=== PATIENT | male | born 1980 | race Caucasian/White ===

== ENCOUNTER 2018-01-12 09:42 | Emergency (ER) | payer MEDICARE, MEDICAID ==
[2018-01-12 11:34] VITALS: BP 142/95
--- NOTE | 2018-01-12 12:24 | UC ---
Throat Pain/Nasal Sergio HPI - HPI Summary HPI Summary: pt is c/o pain to his L ear for past 3 days. notes that just got a mild sore throat as well. has a hx of reoccuring swimmers ear. has old ear drops but didn' t use them bcause wanted to ensure txing the right thing. no fever, STOLL or drainage. - History of Current Complaint Chief Complaint: UCEar Stated Complaint: EAR COMPLAINT, ST Time Seen by Provider: 01/12/18 12:12 Hx Obtained From: Patient Onset/Duration: Gradual Onset Pain Intensity: 8 Associated Signs & Symptoms: Positive: Negative - Epiglottits Risk Factors Epiglottis Risk Factors: Negative - Allergies/Home Medications Allergies/Adverse Reactions: Allergies Allergy/AdvReac Type Severity Reaction Status Date / Time SEASONAL Allergy Congestion Uncoded 01/12/18 11:24 PMH/Surg Hx/FS Hx/Imm Hx Previously Healthy: No - cerebral palsy, lazy eye OS - Surgical History Surgical History: Yes Surgery Procedure, Year, and Place: R foot surgery R/T CPalsy; spinal Fusion - Family History Known Family History: Positive: Cardiac Disease - parents, mother with CAD, father with pacemaker, Hypertension - parents, Diabetes - mother, brother - Social History Occupation: Disabled Lives: With Family Alcohol Use: None Substance Use Type: None Smoking Status (MU): Never Smoked Tobacco - Immunization History Most Recent Influenza Vaccination: LAST WEEK Review of Systems Constitutional: Negative Skin: Negative Eyes: Negative ENT: Sore Throat, Ear Ache Respiratory: Negative Cardiovascular: Negative Gastrointestinal: Negative Genitourinary: Negative Neurological: Other - no acute changes from his cerebral palsy Psychological: Negative Is Patient Immunocompromised?: No All Other Systems Reviewed And Are Negative: Yes Physical Exam Triage Information Reviewed: Yes Appearance: Well-Appearing Vital Signs: Initial Vital Signs Temp 98.8 F 01/12/18 11:29 Pulse 72 01/12/18 11:29 Resp 18 01/12/18 11:29 BP 142/95 01/12/18 11:29 Pulse Ox 98 01/12/18 11:29 Vital Signs Reviewed: Yes Eyes: Positive: Conjunctiva Clear, Other: - L eye lateral deviation ENT: Positive: Pharyngeal erythema, Nasal congestion, TMs normal, Uvula midline , Other - L ear canal with scant pink and pain with auricular tug and tragus pressure. No mastoiditis x2.. Negative: Nasal drainage, Sinus tenderness Neck: Positive: Supple, Nontender, No Lymphadenopathy Respiratory: Positive: Chest non-tender, Lungs clear, Normal breath sounds Cardiovascular: Positive: RRR, No Murmur Abdomen Description: Positive: Nontender, No Organomegaly, Soft Bowel Sounds: Positive: Present Neurological: Positive: Alert Psychological Exam: Normal Skin Exam: Normal Diagnostics - Laboratory Diagnostic Studies Completed/Ordered: rapid strep=neg Throat Pain/Nasal Course/Dx - Course Course Of Treatment: rapid strep=neg. hx OE L ear chronic thus will tx and refer to ent - Differential Dx/Diagnosis Provider Diagnoses: L otits media Discharge - Discharge Plan Condition: Stable Disposition: HOME Prescriptions: Ciproflox/Dexameth OTIC.SUSP* [Ciprodex OTIC.SUSP*] 4 drop OTIC BID 7 Days #1 btl Patient Education Materials: Otitis Externa (ED) Referrals: Mitul Garvey MD [Medical Doctor] - 5 Days
== END 2018-01-12 12:57 | disposition home or self-care (01) ==
LOC: UCCORT 09:42
DX: H66.92 Otitis media, unspecified, left ear (principal); G80.9 Cerebral palsy, unspecified
CPT/HCPCS: 87651; 99211; G0463